=== PATIENT | male | born 1980 | race Hispanic/Latino ===

== ENCOUNTER 2016-05-29 07:29 | Emergency (ER) | payer OTHER ==
[~2016-05-29] VITALS: Ht 172.7 cm; Wt 111.4 kg
[~2016-05-29 07:29] MED LIST: OXYC-465 PO
[2016-05-29 07:38] VITALS: BP 166/107; PULSE 103; RESP 18; O2SAT 96
[2016-05-29 08:15] VITALS: PULSE 101; RESP 14; O2SAT 97
[2016-05-29] MEDS ORDERED: 0.9% Sodium Chloride 1,000 ML IV ONE (08:30)
[2016-05-29] MEDS ORDERED: Pantoprazole 4 mg/mL 10 mL Inj IVPUSH ONE (08:30)
--- NOTE | 2016-05-29 08:40 | ED.REPORT ---
HPI-Abd Pain M Under 40 Date of Service May 29, 2016 ED Provider: Fredy Downey MD Patient is a 35 year old male with who presents to the ED complaining of right abdominal pain. Pt describes the pain as waxing and waning and "feels like a hernia." Pt had an internal hernia three years ago following a laparoscopy cholecystectomy with complications of hepatic laceration several years ago. Pt denies fever and vomiting. Pt has had normal bowel movements. Nursing Notes Stated Complaint: STOMACH PAIN Chief Complaint: Male Abdominal Pain Nursing Notes Reviewed: Yes Allergies: Coded Allergies: No Known Allergies (Verified Allergy, Unknown, 03/21/15) Scheduled Hyoscyamine SL (Hyoscyamine SL) 0.125 Mg Subl 0.125 MG SL QID Scheduled PRN Hydrocodone-Acetaminophen 5-325 mg (Hydrocodone-Acetaminophen 5-325 mg) 1 Each Tablet 1-2 TABLET PO Q4H PRN PRN For Pain Ondansetron ODT (Zofran ODT) 4 Mg Tablet 4 MG PO Q4H PRN PRN For Nausea oxyCODONE-Acetaminophen 7.5-325 mg (oxyCODONE-Acetaminophen 7.5-325 mg) 1 Each Tablet 1-2 TAB PO Q8H PRN PRN For Pain General Time Seen by MD: 08:03 Chief Complaint Abdominal pain (RUQ) Hx Obtained From: Patient Arrived By: Walk-in Onset Occurred: 1 day ago Symptom Duration: Since onset Progression since Onset: Waxes and wanes Location: : RUQ Past Medical History Past Medical History Notes: PCP Eliecer Multiple ED visit for abd pain, several Abdominal CT's at [facility] since 2011 Past Medical History From EMR - Status post acute renal failure secondary to acute tubular necrosis with no long-term effects. Chronic abdominal pain on opiates per old records Reports: GERD Past Surgical History laparascopy cholecystectomy with complications of hepatic laceration requiring transfer to [facility], laparotomy, and ICU stay Incarcerated incisional hernia, Calderon's hernia, and lysis of adhesions of extensive RLQ intra-abdominal adhesions 03/31/2014 Family History noncontributory Smoking History Former Smoker Social History Alcohol Use: Denies alcohol use Drug Use: Denies drug use Other Social History: Local resident Ambulatory Status Independent Review of Systems Constitutional: Denies: Fever GI: Reports: Abdominal pain (RUQ), Denies: Bloody/tarry stool, Constipation, Diarrhea, Hematochezia, Melena, Mucousy stool, Vomiting Complete sys rev & neg: except as marked. Physical Exam Initial Vital Signs Vital Signs (First) Date Time Temp Pulse Resp B/P Pulse Ox O2 Delivery O2 Flow Rate FiO2 05/29/16 07:38 36.6 103 18 166/107 96 Room Air Initial VS: Reviewed Head / Eyes: Atraumatic, Normocephalic, PERRL ENT: Mucous membranes moist, Conjunctiva normal, No scleral icterus Neck: Supple, Non-tender, Full range of motion Lymphatic: No lymphadenopathy Extremities: Vascular intact, Neuro intact, No swelling, No tenderness Skin: Warm, Dry, No cyanosis Neurologic: Alert, Oriented, Nonfocal Psychiatric: Mood/affect normal, Behavior normal, Normal thought content General/Constitutional: Awake, Alert, Well appearing Respiratory / Chest: Atraumatic, Breath sounds NL, Breath sounds = bilat, No respiratory distress Cardiovascular: Heart rate NL, Regular rhythm, Heart sounds NL, No gallop, No murmurs, No rubs Abdomen: Soft, No guarding, No rebound, BS normoactive, No distention, No hernia, No palpable mass, No pulsatile mass Tenderness/Guarding/Rebound: Positive: Tender RUQ... Back: Atraumatic, Inspection NL, Full range of motion Interpretation & Diagnostics Lab Results Interpretation Result Diagram: 05/29/16 0916 05/29/16 0916 Test 05/29/16 09:05 05/29/16 09:16 Hold William Top Tube Received (Received) White Blood Count 5.7th/mm3 (3.8-10.1) Red Blood Count 5.30mil/mm3 (4.40-5.80) Hemoglobin 15.5g/dL (13.8-17.2) Hematocrit 45.2% (41.0-50.0) Mean Corpuscular Volume 85.3fL (81-100) Mean Corpuscular Hemoglobin 29.2pg (27.0-35.0) Mean Corpuscular Hemoglobin Concent 34.3% (32.0-37.0) Red Cell Distribution Width 12.5% (12.3-15.4) Platelet Count 149bil/L (150-400) Neutrophils (%) (Auto) 74.8% (40-74) Lymphocytes (%) (Auto) 17.2% (14-46) Monocytes (%) (Auto) 6.5% (4-12) Eosinophils (%) (Auto) 1.1% (0-5) Basophils (%) (Auto) 0.2% (0-3) Sodium Level 138mEq/L (134-144) Potassium Level 4.4mEq/L (3.5-5.2) Chloride Level 101mEq/L (97-108) Carbon Dioxide Level 24mmol/L (18-29) Blood Urea Nitrogen 12mg/dL (6-20) Creatinine 0.70mg/dL (0.76-1.27) Estimat Glomerular Filtration Rate 136mL/min (>59) Glucose Level 119mg/dL (60-99) Calcium Level 9.3mg/dL (8.5-10.1) Magnesium Level 1.9mg/dL (1.6-2.6) Total Bilirubin 0.5mg/dL (0.0-1.2) Aspartate Amino Transf (AST/SGOT) 21U/L (0-50) Alanine Aminotransferase (ALT/SGPT) 25U/L (0-44) Alkaline Phosphatase 75U/L (25-150) Total Protein 7.3g/dL (6.4-8.4) Albumin 4.3g/dL (3.4-5.0) Lipase 11U/L (13-60) X-Ray Abdominal Interpretation IMPRESSION: No acute disease process. Dictated by: Dian Mondragon MD, PhD on 05/29/2016 at 9:16 Approved by: Dian Mondragon MD, PhD on 05/29/2016 at 9:16 Study: 2 view Interpretation / Wet Read by: Interpret - Radiologist Re-Eval/Medical Decision Re-Evaluation/Progress : Time of Eval: 10:25 Re-Evaluation/Progress Note: Pt rechecked. Informed pt of diagnosis and plan for treatment. Pt understands and agrees with plan. F/U and RTER warnings given. All questions addressed. Counseled Regarding: Diagnosis, Lab results, Need for follow-up, When/why to return to ED Patient Discharge & Departure Primary Impression: Abdominal pain Abdominal location: generalized Qualified Code: R10.84 - Generalized abdominal pain Disposition: Home Discharge Condition All VS Reviewed: Yes Condition: Stable Patient Instructions: Acute Abdominal Pain (ED) Additional Instructions: Thank you for seeking care at emergency room. No blockage is identified no dangerous infection is identified. I think watchful waiting is the next appropriate step. I recommend copious oral hydration. I recommend that you remain active by walking about as this will improve your colon activity. I recommend ondansetron as needed for nausea. You can also use hyoscyamine for abdominal cramps or pain additionally, you can use hydrocodone/APAP one or 2 at a time as needed for more severe pain. Follow-up in 2 or 3 days if significantly not improved sooner if worse. Thank you for letting us partake in your care today. Referrals: NOPCP (PCP) Scribe Attestation Portion of this note were transcribed by Lavonne Boss and Clifton Zepeda. I, Dr. Downey, personally performed the history, physcial exam, and medical decision- making: I reviewed and confirmed the accuracy for the information in the transcribed note. Signed by: Clifton Zepeda and willy Baires, 05/25/16 1045. Fredy Downey MD May 29, 2016 08:40 CLIFTON ZEPEDA May 29, 2016 09:14 Lavonne Boss May 29, 2016 09:39
[2016-05-29] MEDS: Ondansetron 2 mg/mL 2 mL Inj IVPUSH PRN ×2 (09:10→10:46)
[2016-05-29] MEDS: HYDROmorphone 1 mg/mL Inj IVPUSH PRN ×2 (09:14→09:39)
--- NOTE | 2016-05-29 09:18 | DRSVH ---
PROCEDURE: X-RAY ACUTE ABDOMINAL SERIES ([id number]) INDICATIONS: Abd Pain TECHNIQUE: One view chest and two views of the abdomen were acquired. COMPARISON: [facility], CR, XR ABD ACUTE SERIES 3VW, 10/03/2015, 11:36. FINDINGS: Surgical changes and devices: Cholecystectomy clips. Chest: Lungs are clear. Heart size is normal. No pleural effusions. No pneumoperitoneum. Abdomen: Bowel gas pattern is normal. No suspicious calcifications. Visualized solid organ contour s appear normal. Bones: No suspicious bony lesions. IMPRESSION: No acute disease process. Dictated by: Dian Mondragon MD, PhD on 05/29/2016 at 9:16 Approved by: Dian Mondragon MD, PhD on 05/29/2016 at 9:16
[2016-05-29 09:23] LABS: BASOPHILS % (AUTO) 0.2 % (0-3); EOSINOPHILS % (AUTO) 1.1 % (0-5); MONOCYTES % (AUTO) 6.5 % (4-12); Mean Corpuscular Hemoglobin 29.2 pg (27.0-35.0); Mean Corpuscular Volume 85.3 fL (81-100); NEUTROPHILS % (AUTO) 74.8 % (40-74); Platelet Count 149 bil/L (150-400)
[2016-05-29 09:42] LABS: Magnesium 1.9 mg/dL (1.6-2.6)
[2016-05-29 10:13] VITALS: BP 144/85; PULSE 89; RESP 10; O2SAT 95
[2016-05-29] MEDS ORDERED: HYOS0.1218 SL (10:36)
[2016-05-29] MEDS ORDERED: HYDR-4003 PO (10:36)
[2016-05-29] MEDS ORDERED: ONDA4TAB9 PO (10:36)
[2016-05-29] MEDS ORDERED: HYDROmorphone 1 mg/mL Inj IVPUSH ONE (10:40)
[2016-05-29 10:48] VITALS: BP 148/74; PULSE 83; RESP 11; O2SAT 96
[2016-05-29 11:03] VITALS: BP 148/74; PULSE 83; RESP 11; O2SAT 96
== END 2016-05-29 11:04 | disposition home or self-care (01) ==
LOC: SED 07:29
DX: R10.11 Right upper quadrant pain (principal); K21.9 Gastro-esophageal reflux disease without esophagitis; Z90.49 Acquired absence of other specified parts of digestive tract; Z87.891 Personal history of nicotine dependence
CPT/HCPCS: 36415; 74022; 80053; 83690; 83735; 85025; 96361; 96374; 96375; 96376; 99285; J1170; J2405; J7030

== ENCOUNTER 2016-06-03 08:23 | Emergency (ER) | payer OTHER ==
[~2016-06-03] VITALS: Ht 170.2 cm; Wt 109.1 kg
[~2016-06-03 08:23] MED LIST changes: +HYDR-4003 PO; +HYOS0.1218 SL; +ONDA4TAB9 PO
[2016-06-03 08:30] VITALS: BP 152/102; PULSE 99; RESP 15; O2SAT 96
--- NOTE | 2016-06-03 09:03 | ED.REPORT ---
HPI-Abd Pain M Under 40 Date of Service Jun 03, 2016 ED Provider: Fredy Downey MD Pt is a 35 year old male with a history of a complicated cholecystitis who presents to the ED with complaints of RUQ abdominal pain that started one week ago. Pt describes his pain as a burning that starts in his RUQ and radiates downwards. He denies any nausea, but admits to self-induced vomiting to alleviate his pain. He reports that he was seen in the ED for the same complaints one week ago, and was discharged after her was stabilized. He reports that once the medications wore off, the pain returned. Pt denies any diarrhea, constipation, chills, fevers or any other symptoms. Pt reports a complicated surgical history in his abdomen, including a nicked artery during a cholecystectomy, requiring a medical induced coma. Nursing Notes Stated Complaint: ABDOMINAL PAIN Chief Complaint: Male Abdominal Pain Nursing Notes Reviewed: Yes Allergies: Coded Allergies: No Known Allergies (Verified Allergy, Unknown, 03/21/15) Scheduled Hyoscyamine SL (Hyoscyamine SL) 0.125 Mg Subl 0.125 MG SL QID Scheduled PRN Hydrocodone-Acetaminophen 5-325 mg (Hydrocodone-Acetaminophen 5-325 mg) 1 Each Tablet 1-2 TABLET PO Q4H PRN PRN For Pain Ondansetron ODT (Zofran ODT) 4 Mg Tablet 4 MG PO Q4H PRN PRN For Nausea oxyCODONE-Acetaminophen 7.5-325 mg (oxyCODONE-Acetaminophen 7.5-325 mg) 1 Each Tablet 1-2 TAB PO Q8H PRN PRN For Pain General Time Seen by MD: 08:43 Chief Complaint Abdominal pain Hx Obtained From: Patient Arrived By: Walk-in Sudden in Onset?: Yes Onset Occurred: 1 week ago Symptom Duration: Intermittent Location: : RUQ Quality: Painful Severity: Current: Moderate Severity: Maximum: Severe Similar Sx Previous: Yes Past Medical History Past Medical History Notes: PCP Eliecer Multiple ED visit for abd pain, several Abdominal CT's at [facility] since 2011 Past Medical History From EMR - Status post acute renal failure secondary to acute tubular necrosis with no long-term effects. Chronic abdominal pain on opiates per old records Reports: GERD Past Surgical History laparascopy cholecystectomy with complications of hepatic laceration requiring transfer to [facility], laparotomy, and ICU stay Incarcerated incisional hernia, Calderon's hernia, and lysis of adhesions of extensive RLQ intra-abdominal adhesions 03/31/2014 Family History noncontributory Smoking History Former Smoker Social History Alcohol Use: Denies alcohol use Drug Use: Denies drug use Other Social History: Local resident Ambulatory Status Independent Review of Systems Constitutional: Denies: Chills, Fever, Malaise, Weakness - generalized Respiratory: Denies: Non-productive cough, Shortness of breath, Wheezing Cardiovascular: Denies: Chest pain, Syncope GI: Reports: Abdominal pain, Vomiting, Denies: Constipation, Diarrhea, Nausea Male: Denies Dysuria, Denies Flank pain, Denies Urinary frequency, Denies Urinary urgency Complete sys rev & neg: except as marked. Physical Exam Initial Vital Signs Vital Signs (First) Date Time Temp Pulse Resp B/P Pulse Ox O2 Delivery O2 Flow Rate FiO2 06/03/16 08:30 36.7 99 15 152/102 96 Room Air Initial VS: Reviewed Head / Eyes: Atraumatic, Normocephalic, PERRL ENT: Mucous membranes moist, Conjunctiva normal, No scleral icterus Neck: Supple, Non-tender, Full range of motion Skin: Warm, Dry, No cyanosis Neurologic: Alert, Oriented, Nonfocal Psychiatric: Mood/affect normal, Behavior normal, Normal thought content General/Constitutional: Awake, Alert, Well appearing, Well developed, Well nourished, Cooperative Respiratory / Chest: Atraumatic, Breath sounds NL, Breath sounds = bilat, No respiratory distress Cardiovascular: Heart rate NL, Regular rhythm, Heart sounds NL, No gallop, No murmurs, No rubs Abdomen: Soft, No guarding, No rebound Exquisitely tender RUQ Back: Atraumatic, Inspection NL, No CVA tenderness Interpretation & Diagnostics Lab Results Interpretation Result Diagram: 06/03/16 0940 06/03/16 0940 Test 06/03/16 09:40 White Blood Count 5.4th/mm3 (3.8-10.1) Red Blood Count 5.14mil/mm3 (4.40-5.80) Hemoglobin 15.1g/dL (13.8-17.2) Hematocrit 44.2% (41.0-50.0) Mean Corpuscular Volume 86.0fL (81-100) Mean Corpuscular Hemoglobin 29.4pg (27.0-35.0) Mean Corpuscular Hemoglobin Concent 34.2% (32.0-37.0) Red Cell Distribution Width 12.7% (12.3-15.4) Platelet Count 139bil/L (150-400) Neutrophils (%) (Auto) 71.2% (40-74) Lymphocytes (%) (Auto) 18.6% (14-46) Monocytes (%) (Auto) 7.6% (4-12) Eosinophils (%) (Auto) 2.2% (0-5) Basophils (%) (Auto) 0.2% (0-3) Sodium Level 137mEq/L (134-144) Potassium Level 4.3mEq/L (3.5-5.2) Chloride Level 100mEq/L (97-108) Carbon Dioxide Level 26mmol/L (18-29) Blood Urea Nitrogen 10mg/dL (6-20) Creatinine 0.69mg/dL (0.76-1.27) Estimat Glomerular Filtration Rate 139mL/min (>59) Glucose Level 123mg/dL (60-99) Calcium Level 9.2mg/dL (8.5-10.1) Magnesium Level 1.9mg/dL (1.6-2.6) Total Bilirubin 0.8mg/dL (0.0-1.2) Aspartate Amino Transf (AST/SGOT) 18U/L (0-50) Alanine Aminotransferase (ALT/SGPT) 24U/L (0-44) Alkaline Phosphatase 75U/L (25-150) Total Protein 7.0g/dL (6.4-8.4) Albumin 4.1g/dL (3.4-5.0) Lipase 11U/L (13-60) Re-Eval/Medical Decision Source of Hx: Old records Re-Evaluation/Progress : Time of Eval: 12:02 Patient Status: Condition improved Re-Evaluation/Progress Note: At this point the patient has declined further evaluation. Though he has been drinking oral contrast and is prepared to go to CT with the technology strategist in the room ready to take him, he says he does not want have this test now he just wants to go home he says "he can be in pain at home just as easily" he says he just was to follow up as an outpatient. He understands that he will not get a pain medication prescription to go home. Counseled Regarding: Diagnosis, Lab results, Need for follow-up, When/why to return to ED Patient Discharge & Departure Primary Impression: Abdominal pain Abdominal location: right upper quadrant Qualified Code: R10.11 - Right upper quadrant pain Disposition: Home Discharge Condition All VS Reviewed: Yes Condition: Stable Patient Instructions: Acute Abdominal Pain (ED) Additional Instructions: No definitive cause for your abdominal pain is identified. I suspect it is a complication of previous surgeries that you have had. You have declined further evaluation at this time though we have offered CT scanning. You understand that no narcotic prescriptions are provided at this time. I recommend that you use either ibuprofen or Tylenol as needed for pain and follow up with your outpatient doctor as soon as possible. If your symptoms are out of control you have worsening symptoms or new symptoms, you are welcome to return to the emergency department for further evaluation. Referrals: NOPCP (PCP) Scribe Attestation Portions of this note were transcribed by Juanis Daniels. I, Dr. Downey personally performed the history, physical exam and medical decision-making; I reviewed and confirmed the accuracy of the information in the transcribed note. Signed by: Juanis Velarde, 06/03/2016 [Time] Fredy Downey MD Jun 03, 2016 09:03 WAGNER DANIELS Jun 03, 2016 09:20
[2016-06-03] MEDS ORDERED: 0.9% Sodium Chloride 1,000 ML IV ONE (09:16)
[2016-06-03] MEDS ORDERED: Ondansetron 2 mg/mL 2 mL Inj IVPUSH PRN (09:20)
[2016-06-03] MEDS ORDERED: Pantoprazole 4 mg/mL 10 mL Inj IVPUSH ONE (09:20)
[2016-06-03] MEDS ORDERED: HYDROmorphone 1 mg/mL Inj IVPUSH ONE (09:20)
[2016-06-03] MEDS ORDERED: Iohexol 300 mg/mL 30 mL Inj PO ONE (09:55)
[2016-06-03 09:59] LABS: BASOPHILS % (AUTO) 0.2 % (0-3); EOSINOPHILS % (AUTO) 2.2 % (0-5); MONOCYTES % (AUTO) 7.6 % (4-12); Mean Corpuscular Hemoglobin 29.4 pg (27.0-35.0); NEUTROPHILS % (AUTO) 71.2 % (40-74); Platelet Count 139 bil/L (150-400)
[2016-06-03] MEDS ORDERED: HYDROmorphone 1 mg/mL Inj IVPUSH PRN (10:20)
[2016-06-03 10:23] LABS: Magnesium 1.9 mg/dL (1.6-2.6)
== END 2016-06-03 12:17 | disposition home or self-care (01) ==
LOC: SED 08:23
DX: R10.11 Right upper quadrant pain (principal); G89.29 Other chronic pain; K21.9 Gastro-esophageal reflux disease without esophagitis; Z79.891 Long term (current) use of opiate analgesic; Z87.19 Personal history of other diseases of the digestive system; Z98.890 Other specified postprocedural states; Z90.49 Acquired absence of other specified parts of digestive tract
CPT/HCPCS: 36415; 80053; 83690; 83735; 85025; 96361; 96374; 96375; 99285; J1170; J2405; J7030

== ENCOUNTER 2016-06-14 05:24 | Emergency (ER) | payer OTHER ==
[~2016-06-14] VITALS: Ht 172.7 cm; Wt 118.2 kg
[2016-06-14 05:26] VITALS: BP 152/103; PULSE 84; RESP 16; O2SAT 97
[2016-06-14 06:03] LABS: BASOPHILS % (AUTO) 0.1 % (0-3); EOSINOPHILS % (AUTO) 1.3 % (0-5); MONOCYTES % (AUTO) 9.6 % (4-12); Mean Corpuscular Hemoglobin 28.7 pg (27.0-35.0); Mean Corpuscular Volume 85.6 fL (81-100); NEUTROPHILS % (AUTO) 66.8 % (40-74); Platelet Count 150 bil/L (150-400)
--- NOTE | 2016-06-14 06:09 | ED.REPORT ---
HPI-Abd Pain M Under 40 Date of Service Jun 14, 2016 ED Provider: Galindo Carrington DO The patient is a 35 year old male with history of chronic abdominal pain who presents to the emergency department complaining of abdominal pain that began last week. He was in [place] when his symptoms began and was seen at a local hospital. He was diagnosed with colitis and was discharged with prescriptions. He was unable to get his prescriptions filled. His pain has started to worsen again over the last few days. He has also experienced nausea, vomiting, and diarrhea. The diarrhea looks "yellow." He denies fever, chills, cough, runny nose, dysuria or hematuria. Nursing Notes Stated Complaint: STOMACH PAIN Chief Complaint: Male Abdominal Pain Nursing Notes Reviewed: Yes Allergies: Coded Allergies: No Known Allergies (Verified Allergy, Unknown, 03/21/15) Scheduled Hyoscyamine SL (Hyoscyamine SL) 0.125 Mg Subl 0.125 MG SL QID Scheduled PRN Hydrocodone-Acetaminophen 5-325 mg (Hydrocodone-Acetaminophen 5-325 mg) 1 Each Tablet 1-2 TABLET PO Q4H PRN PRN For Pain Ondansetron ODT (Zofran ODT) 4 Mg Tablet 4 MG PO Q4H PRN PRN For Nausea Ondansetron ODT (Zofran ODT) 4 Mg Tablet 4 MG PO Q4H PRN PRN For Nausea Tramadol (Tramadol) 50 Mg Tablet 50 MG PO Q4H PRN PRN For Pain oxyCODONE-Acetaminophen 7.5-325 mg (oxyCODONE-Acetaminophen 7.5-325 mg) 1 Each Tablet 1-2 TAB PO Q8H PRN PRN For Pain General Time Seen by MD: 06:05 Chief Complaint Abdominal pain Hx Obtained From: Patient Arrived By: Walk-in Sudden in Onset?: Yes Onset Occurred: More than a week ago... Symptom Duration: Since onset Progression since Onset: Constant, Gradually worsening Location: : Diffuse Quality: Painful Radiation: : Does not radiate Severity: Current: Moderate Severity: Maximum: Severe Associated with: Reports: Diarrhea, Nausea, Vomiting, Denies: Chills, Fever Pertinent Negative: Pt denies other symptoms Recent Healthcare: No recent hospitalization, Recent doctor visit Similar Sx Previous: Yes Past Medical History Past Medical History Notes: Multiple ED visit for abd pain, several Abdominal CT's at [facility] since 2011 Past Medical History From EMR - Status post acute renal failure secondary to acute tubular necrosis with no long-term effects. Chronic abdominal pain on opiates per old records Reports: GERD Past Surgical History laparascopy cholecystectomy with complications of hepatic laceration requiring transfer to [facility], laparotomy, and ICU stay Incarcerated incisional hernia, Calderon's hernia, and lysis of adhesions of extensive RLQ intra-abdominal adhesions 03/31/2014 Family History noncontributory Smoking History Former Smoker Social History Alcohol Use: Denies alcohol use Drug Use: Denies drug use Other Social History: Local resident Ambulatory Status Independent Review of Systems Constitutional: Denies: Chills, Fever Respiratory: Denies: Non-productive cough GI: Reports: Abdominal pain, Diarrhea, Nausea, Vomiting, Denies: Bloody/tarry stool, Constipation, Hematemesis, Hematochezia Male: Denies Dysuria, Denies Hematuria Complete sys rev & neg: except as marked. Ears / Nose / Throat: Denies: Sore throat Allergy / Immune: Denies: Rhinorrhea Physical Exam Initial Vital Signs Vital Signs (First) Date Time Temp Pulse Resp B/P Pulse Ox O2 Delivery O2 Flow Rate FiO2 06/14/16 05:26 36.2 84 16 152/103 97 Room Air Initial VS: Reviewed Head / Eyes: Atraumatic, Normocephalic, PERRL ENT: Mucous membranes moist, Conjunctiva normal, No scleral icterus Neck: Supple, Non-tender, Full range of motion Lymphatic: No lymphadenopathy Extremities: Vascular intact, Neuro intact, No swelling, No tenderness Skin: Warm, Dry, No cyanosis Neurologic: Alert, Oriented, Nonfocal Psychiatric: Mood/affect normal, Behavior normal, Normal thought content General/Constitutional: Awake, Alert, Well appearing Distress / Hydration: Positive: Distress mild Appearance / Presentation: Positive: Obese Respiratory / Chest: Atraumatic, Breath sounds NL, Breath sounds = bilat, No respiratory distress, No rales, No rhonchi, No wheezing, No stridor Cardiovascular: Heart rate NL, Regular rhythm, Heart sounds NL, No murmurs, No rubs, Peripheral circulation NL Abdomen: Soft, No guarding, No rebound, BS normoactive, No distention, No hernia, No palpable mass, No pulsatile mass Right-sided abdominal tenderness. Multiple abdominal scars. Back: Inspection NL Interpretation & Diagnostics Lab Results Interpretation Result Diagram: 06/14/16 0555 06/14/16 0555 Test 06/14/16 05:55 White Blood Count 8.4th/mm3 (3.8-10.1) Red Blood Count 5.29mil/mm3 (4.40-5.80) Hemoglobin 15.2g/dL (13.8-17.2) Hematocrit 45.3% (41.0-50.0) Mean Corpuscular Volume 85.6fL (81-100) Mean Corpuscular Hemoglobin 28.7pg (27.0-35.0) Mean Corpuscular Hemoglobin Concent 33.6% (32.0-37.0) Red Cell Distribution Width 13.1% (12.3-15.4) Platelet Count 150bil/L (150-400) Neutrophils (%) (Auto) 66.8% (40-74) Lymphocytes (%) (Auto) 21.8% (14-46) Monocytes (%) (Auto) 9.6% (4-12) Eosinophils (%) (Auto) 1.3% (0-5) Basophils (%) (Auto) 0.1% (0-3) Sodium Level 142mEq/L (134-144) Potassium Level 4.1mEq/L (3.5-5.2) Chloride Level 106mEq/L (97-108) Carbon Dioxide Level 21mmol/L (18-29) Blood Urea Nitrogen 14mg/dL (6-20) Creatinine 0.71mg/dL (0.76-1.27) Estimat Glomerular Filtration Rate 134mL/min (>59) Glucose Level 112mg/dL (60-99) Calcium Level 9.3mg/dL (8.5-10.1) Magnesium Level 2.1mg/dL (1.6-2.6) Total Bilirubin 0.7mg/dL (0.0-1.2) Aspartate Amino Transf (AST/SGOT) 24U/L (0-50) Alanine Aminotransferase (ALT/SGPT) 21U/L (0-44) Alkaline Phosphatase 75U/L (25-150) Total Protein 7.1g/dL (6.4-8.4) Albumin 4.5g/dL (3.4-5.0) Lipase 28U/L (13-60) CT Abd / Pelvis Interpretation IMPRESSION: 1. No acute process. No explanation for abdominal pain and emesis. No bowel obstruction. 2. Normal appendix. 3. Increased right basilar nodular densities as described above, largest of which measures 32 mm. These could represent regions of increased scarring. Further assessment with IV contrast enhanced chest CT is recommended to assess for the less likely possibility of neoplasm. 4. Diastatic rectus muscles with overlying fat containing umbilical hernia. Dictated by: Estella Adams M.D. on 06/14/2016 at 8:12 Interpretation / Wet Read by: Interpret - Radiologist Re-Eval/Medical Decision Med Decision/Clinical Course No acute pathology identified. Patient will be discharged with close follow-up recommended. Tramadol 6 tablets, and Zofran given. Source of Hx: Old records Re-Evaluation/Progress : Time of Eval: 08:24 Re-Evaluation/Progress Note: Rechecked the patient. Discussed plan for discharge. All questions were addressed. Counseled Regarding: Diagnosis, Lab results, Need for follow-up, When/why to return to ED Patient Discharge & Departure Primary Impression: Abdominal pain Abdominal location: unspecified location Qualified Code: R10.9 - Unspecified abdominal pain Disposition: Home Discharge Condition All VS Reviewed: Yes Condition: Stable Patient Instructions: Acute Abdominal Pain (ED) Additional Instructions: Thank you for entrusting us with your care today. Your labs and abdominal CT today are reassuring. There are no findings of anything acutely dangerous. Use the medications as prescribed. Followup with a regular doctor in the next few days for further management of your pain. We have given you a referral to the residency clinic and [facility]. Return to the emergency department for any new or concerning symptoms. Referrals: [facility] Attestation Portions of this note were transcribed by Lavonne Boss. I, Dr. Carrington personally performed the history, physical exam and medical decision-making; I reviewed and confirmed the accuracy of the information in the transcribed note. Signed by: Prachi Baires, 06/14/2016 and 0810. copies to: [facility] Galindo Carrington DO Jun 14, 2016 06:09 Lavonne Boss Jun 14, 2016 06:13
[2016-06-14] MEDS ORDERED: Ondansetron 2 mg/mL 2 mL Inj IVPUSH PRN (06:20)
[2016-06-14] MEDS ORDERED: 0.9% Sodium Chloride 1,000 ML IV ONE (06:20)
[2016-06-14] MEDS ORDERED: HYDROmorphone 1 mg/mL Inj IVPUSH ONE (06:20)
[2016-06-14 06:36] LABS: Magnesium 2.1 mg/dL (1.6-2.6)
[2016-06-14] MEDS ORDERED: HYDROcodone-APAP 5-325 mg Tablet PO ONE (07:35)
--- NOTE | 2016-06-14 08:18 | DRSVH ---
PROCEDURE: CT ABDOMEN AND PELVIS WITH CONTRAST ([id number]) INDICATIONS: abd pain, vomiting TECHNIQUE: After the administration of intravenous contrast, 5 mm thick sections acquired from the diaphragm to the symphysis. 5 mm coronal and sagittal reformats were acquired. For radiation dose reduction, the following was used: automated exposure control, adjustment of mA and/or kV according to patient lana e. COMPARISON: [facility], CT, CT ABD PELVIS W CON, 09/26/2015, 14:59. [facility], CT, CT ABD PELVIS W CON, 06/28/2015, 4:02. [facility], CT, CT ABD PELVIS W CON, 03/21, 21:05. FINDINGS: Image quality: Excellent. ABDOMEN: Lung bases: Increased, 14 mm diameter nodule within the right posterior lung base. Increased, 11 mm d iameter nodule within the right lateral lung base. Increased, 32 mm diameter subpleural density withi n the right anterior lung base. Heart size is normal. Solid organs: Liver and spleen are normal in size and enhancement. Gallbladder is surgically absent . Biliary system is non dilated. Pancreas enhances normally. No adrenal nodules. Kidneys demonstr ate normal size and enhancement, without hydronephrosis. Peritoneum and bowel: Bowel loops demonstrate normal wall thickness and caliber. No free fluid or a ir. Normal appendix. Nodes and vessels: No retroperitoneal or mesenteric adenopathy by size criteria. Aorta and inferior vena cava are normal in size. Miscellaneous: The rectus muscles are diastatic, as before. There is a small overlying fat containing umbilical hernia measuring 27 mm. PELVIS: Genitourinary: Bladder wall thickness is normal. Miscellaneous: No inguinal hernias or adenopathy. Bones: No suspicious bony lesions. No vertebral body compression fractures. IMPRESSION: 1. No acute process. No explanation for abdominal pain and emesis. No bowel obstruction. 2. Normal appendix. 3. Increased right basilar nodular densities as described above, largest of which measures 32 mm. The se could represent regions of increased scarring. Further assessment with IV contrast enhanced chest CT is recommended to assess for the less likely possibility of neoplasm. 4. Diastatic rectus muscles with overlying fat containing umbilical hernia. Dictated by: Estella Adams M.D. on 06/14/2016 at 8:12 Approved by: Estella Adams M.D. on 06/14/2016 at 8:16
[2016-06-14] MEDS ORDERED: TRAM50TA2 PO (08:32)
[2016-06-14] MEDS ORDERED: ONDA4TAB9 PO (08:32)
[2016-06-14 09:03] VITALS: BP 159/112; PULSE 86; O2SAT 99
== END 2016-06-14 08:32 | disposition home or self-care (01) ==
LOC: SED 05:24
DX: R10.9 Unspecified abdominal pain (principal); G89.29 Other chronic pain; R11.2 Nausea with vomiting, unspecified; R19.7 Diarrhea, unspecified; K21.9 Gastro-esophageal reflux disease without esophagitis; Z90.49 Acquired absence of other specified parts of digestive tract; Z87.891 Personal history of nicotine dependence
CPT/HCPCS: 36415; 74177; 80053; 83690; 83735; 85025; 96374; 96375; 99285; J1170; J2405; J7030; Q9967

== ENCOUNTER 2016-07-06 06:41 | Emergency (ER) | payer OTHER ==
[~2016-07-06] VITALS: Ht 172.7 cm; Wt 109.1 kg
[~2016-07-06 06:41] MED LIST changes: +TRAM50TA2 PO
[2016-07-06 06:43] VITALS: BP 151/100; PULSE 85; RESP 16; O2SAT 96
--- NOTE | 2016-07-06 07:09 | ED.REPORT ---
HPI-Abd Pain M Under 40 Date of Service Jul 06, 2016 ED Provider: Fredy Downey MD 35 year old male with a history of chronic abdominal pain on opiates per old records, cholecystectomy with complication of hepatic laceration, laparotomy, and incarcerated incisional hernia, Calderon's hernia and extensive intra- abdominal adhesions presents to the ER complaining of six weeks of acute on chronic abdominal pain. Patient denies fever, and diarrhea. He states that he was [place] on 06[place]13[place]16 [place] At that time he was admitted to [facility] for colitis. Symptoms have been treated with Toradol shots administered by his PCP, Dr. Madrigal, with only temporary relief. He expresses frustration with his medical care, stating that "nobody knows what is wrong and they don't do enough". Nursing Notes Stated Complaint: ABDOMINAL PAIN Chief Complaint: Male Abdominal Pain Nursing Notes Reviewed: Yes Allergies: Coded Allergies: No Known Allergies (Verified Allergy, Unknown, 07/06/16) Scheduled Hyoscyamine SL (Hyoscyamine SL) 0.125 Mg Subl 0.125 MG SL QID Scheduled PRN Hydrocodone-Acetaminophen 5-325 mg (Hydrocodone-Acetaminophen 5-325 mg) 1 Each Tablet 1-2 TABLET PO Q4H PRN PRN For Pain Ondansetron ODT (Zofran ODT) 4 Mg Tablet 4 MG PO Q4H PRN PRN For Nausea Ondansetron ODT (Zofran ODT) 4 Mg Tablet 4 MG PO Q4H PRN PRN For Nausea Tramadol (Tramadol) 50 Mg Tablet 50 MG PO Q4H PRN PRN For Pain oxyCODONE-Acetaminophen 7.5-325 mg (oxyCODONE-Acetaminophen 7.5-325 mg) 1 Each Tablet 1-2 TAB PO Q8H PRN PRN For Pain General Time Seen by MD: 07:08 Chief Complaint Abdominal pain Hx Obtained From: Patient Arrived By: Walk-in Onset Occurred: More than a week ago... (6 weeks) Symptom Duration: Since onset Location: : Diffuse Quality: Painful Severity: Current: Moderate Severity: Maximum: Moderate Associated with: Reports: Nausea, Vomiting, Denies: Diarrhea, Fever Context Related History: Reports: Abdominal surgery, Adhesions, Cholecystitis Similar Sx Previous: Yes Past Medical History Past Medical History Notes: Multiple ED visit for abd pain, several Abdominal CT's at [facility] since 2011 Past Medical History From EMR - Status post acute renal failure secondary to acute tubular necrosis with no long-term effects. Chronic abdominal pain on opiates per old records Reports: GERD Past Surgical History laparascopy cholecystectomy with complications of hepatic laceration requiring transfer to [facility], laparotomy, and ICU stay Incarcerated incisional hernia, Calderon's hernia, and lysis of adhesions of extensive RLQ intra-abdominal adhesions 03/31/2014 Family History noncontributory Smoking History Former Smoker Social History Alcohol Use: Denies alcohol use Drug Use: Denies drug use Other Social History: Local resident Ambulatory Status Independent Review of Systems Constitutional: Denies: Chills, Fever Respiratory: Denies: Non-productive cough, Shortness of breath Cardiovascular: Denies: Chest pain GI: Reports: Abdominal pain, Nausea, Vomiting, Denies: Diarrhea, Hematemesis, Hematochezia Complete sys rev & neg: except as marked. Physical Exam Initial Vital Signs Vital Signs (First) Date Time Temp Pulse Resp B/P Pulse Ox O2 Delivery O2 Flow Rate FiO2 07/06/16 06:43 36.9 85 16 151/100 96 Room Air Initial VS: Reviewed Head / Eyes: Atraumatic, Normocephalic Neck: Supple, Non-tender, Full range of motion Extremities: Vascular intact, Neuro intact, No swelling, No tenderness Skin: Warm, Dry, No cyanosis Neurologic: Alert, Oriented, Nonfocal General/Constitutional: Awake, Alert, Well developed, Well nourished Respiratory / Chest: Breath sounds NL, Breath sounds = bilat, No respiratory distress, No rales, No rhonchi, No wheezing, No stridor Cardiovascular: Heart rate NL, Regular rhythm, Heart sounds NL, Peripheral circulation NL Abdomen: Soft, No guarding, No rebound, No distention Tenderness/Guarding/Rebound: Positive: Tender diffuse Back: Inspection NL, Non-tender, No CVA tenderness Re-Eval/Medical Decision Source of Hx: Old records Re-Evaluation/Progress : Time of Eval: 09:08 Re-Evaluation/Progress Note: Nurse reports that patient has eloped. Consultation : Referral / Consult Name: Elian Perez MD Consulted With: Primary care physician Call Returned at: 09:04 Note: Discussed patient case with Dr. Garett Perez, [facility]. states that she will relay this information to Dr. Madrigal. While I was on the phone, the patient left the department without being discharged. He was visibly irritated by the fact that I was only interested in administering Toradol for his pain management. Patient Discharge & Departure Primary Impression: Abdominal pain Abdominal location: generalized Qualified Code: R10.84 - Generalized abdominal pain Disposition: AGAINST MEDICAL ADVICE (the patient left without being discharged and without completing evaluation. He did not advise staff that he was leaving. ) Discharge Condition All VS Reviewed: Yes Condition: Stable Patient Instructions: Acute Abdominal Pain (ED) Referrals: NOPCP (PCP) Anthony Madrigal MD Attestation Portions of this note were transcribed by Kar Veliz. I, Dr. Downey, personally performed the history, physical exam and medical decision-making; I reviewed and confirmed the accuracy of the information in the transcribed note. Signed by: Prachi Flores, 07/06/2016 and 09:09 copies to: Anthony Madrigal MD, Kirk H MD Jul 06, 2016 07:09 KAR VELIZ Jul 06, 2016 07:18
[2016-07-06] MEDS ORDERED: Ketorolac 30 mg/mL 2 mL Inj IM ONE (09:00)
[2016-07-06] MEDS ORDERED: Ondansetron 8 mg ODT Tablet PO ONE (09:00)
== END 2016-07-06 09:07 | disposition left against medical advice (07) ==
LOC: SED 06:41
DX: R10.84 Generalized abdominal pain (principal); K21.9 Gastro-esophageal reflux disease without esophagitis; Z90.49 Acquired absence of other specified parts of digestive tract; Z87.891 Personal history of nicotine dependence

== ENCOUNTER 2016-09-13 08:24 | Emergency (ER) | payer OTHER ==
[~2016-09-13] VITALS: Ht 172.7 cm; Wt 113.6 kg
[2016-09-13 08:30] VITALS: BP 153/108; PULSE 95; RESP 12; O2SAT 98
[2016-09-13 08:57] LABS: BASOPHILS % (AUTO) 0.3 % (0-3); EOSINOPHILS % (AUTO) 1.9 % (0-5); Mean Corpuscular Hemoglobin 29.5 pg (27.0-35.0); Mean Corpuscular Volume 86.5 fL (81-100); NEUTROPHILS % (AUTO) 70.8 % (40-74); Platelet Count 137 bil/L (150-400)
[2016-09-13] MEDS ORDERED: ACET-2605 PO (09:02)
[2016-09-13] MEDS ORDERED: IBUP200C PO (09:02)
--- NOTE | 2016-09-13 09:05 | ED.REPORT ---
HPI-Abd Pain M Under 40 Date of Service Sep 13, 2016 ED Provider: Jamie Connelly MD History of Present Illness: OCC The patient is a 36 year old male who presents to the ED due to increasingly severe RLQ abdominal pain for the past week. 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 He confirms that it is a similar "ripping, sharp, painful," sensation that he has experienced previously. He has been taking large amounts of ibuprofen and Tylenol to help alleviate symptoms. The pain is intermittent, 7/10, and more severe at night and in the morning. Pain increases with exertion. He denies fever, nausea, vomiting, diarrhea, dysuria, cough, and change in weight. He was last seen 06/2016 for similar symptoms. Nursing Notes Stated Complaint: STOMACH PAIN/FEEL DEHYDRATED Chief Complaint: Male Abdominal Pain Nursing Notes Reviewed: Yes (Power Efficiency, Tippr reconciled) Allergies: Coded Allergies: No Known Allergies (Verified Allergy, Unknown, 07/06/16) Scheduled Acetaminophen/Diphenhydramine (Tylenol Pm Ex-Strength Caplet) 500 Mg-25 Mg Tablet 1 EACH PO HS Scheduled PRN Ibuprofen (Ibuprofen) 200 Mg Capsule 600 MG PO HS PRN PRN For Pain General Time Seen by MD: 08:45 Chief Complaint Abdominal pain Hx Obtained From: Patient Arrived By: Walk-in Location: : RLQ Quality: Painful, Sharp, Stabbing Severity: Current: Pain level 7 out of 10 Recent Healthcare: No recent doctor visit, No recent hospitalization Similar Sx Previous: No Past Medical History Past Medical History Notes: Multiple ED visit for abd pain, several Abdominal CT's at [facility] since 2011 Last ED visit 06/2016 for Abd Pain -> Eloped with chart indicating patient upset about receiving only Torradol Last ED visits also May 29, , and with CT imaging: Jun 14, 2016 NAD (but ?lung nodule). The patient has had 8 CT scans of the abdomen is 2011 Past Medical History From EMR - Status post acute renal failure secondary to acute tubular necrosis with no long-term effects. Chronic abdominal pain on opiates per old records Abnormal lung nodule, process the radiologist cannot exclude neoplasm with recommended chest with contrast based on abdominal CT scan findings 06/14/2016 Reports: GERD Past Surgical History laparascopy cholecystectomy with complications of hepatic laceration requiring transfer to [facility], laparotomy, and ICU stay Incarcerated incisional hernia, Calderon's hernia, and lysis of adhesions of extensive RLQ intra-abdominal adhesions 03/31/2014 Family History noncontributory Smoking History Former Smoker Social History Alcohol Use: Denies alcohol use Drug Use: Denies drug use Other Social History: Local resident Ambulatory Status Independent Review of Systems Review of Systems Note: does not have any respiratory symptoms Constitutional: Denies: Fever Respiratory: Denies: Dyspnea on exertion, Hemoptysis, Non-productive cough, Parox nocturnal dyspnea, Pleuritic pain, Wheezing GI: Reports: Abdominal pain, Denies: Diarrhea, Nausea, Vomiting Male: Denies Dysuria Complete sys rev & neg: except as marked. Endocrine: Denies: Weight gain, Weight loss Physical Exam Initial Vital Signs Vital Signs (First) Date Time Temp Pulse Resp B/P Pulse Ox O2 Delivery O2 Flow Rate FiO2 09/13/16 08:30 36.6 95 12 153/108 98 Room Air Initial VS: Reviewed, Vital signs normal (mild HTN) Head / Eyes: Atraumatic, Normocephalic, PERRL ENT: Mucous membranes moist, Conjunctiva normal Extremities: Vascular intact, Neuro intact, No swelling, No tenderness Skin: Warm, Dry General/Constitutional: Awake, Alert, Cooperative, Not toxic appearing Respiratory / Chest: Atraumatic, Breath sounds NL, Breath sounds = bilat, No respiratory distress Abdomen: No guarding, No rebound trace right side tenderness large midline incisional scar no palpable hernias evident Back: Atraumatic, Full range of motion Interpretation & Diagnostics Lab Results Interpretation Result Diagram: 09/13/16 0850 09/13/16 0850 Test 09/13/16 08:50 White Blood Count 5.9th/mm3 (3.8-10.1) Red Blood Count 5.12mil/mm3 (4.40-5.80) Hemoglobin 15.1g/dL (13.8-17.2) Hematocrit 44.3% (41.0-50.0) Mean Corpuscular Volume 86.5fL (81-100) Mean Corpuscular Hemoglobin 29.5pg (27.0-35.0) Mean Corpuscular Hemoglobin Concent 34.1% (32.0-37.0) Red Cell Distribution Width 12.4% (12.3-15.4) Platelet Count 137bil/L (150-400) Neutrophils (%) (Auto) 70.8% (40-74) Lymphocytes (%) (Auto) 19.8% (14-46) Monocytes (%) (Auto) 7.0% (4-12) Eosinophils (%) (Auto) 1.9% (0-5) Basophils (%) (Auto) 0.3% (0-3) Sodium Level 140mEq/L (134-144) Potassium Level 4.2mEq/L (3.5-5.2) Chloride Level 103mEq/L (97-108) Carbon Dioxide Level 24mmol/L (18-29) Blood Urea Nitrogen 11mg/dL (6-20) Creatinine 0.73mg/dL (0.76-1.27) Estimat Glomerular Filtration Rate 129mL/min (>59) Glucose Level 136mg/dL (60-99) Calcium Level 9.1mg/dL (8.5-10.1) Magnesium Level 1.9mg/dL (1.6-2.6) Total Bilirubin 0.3mg/dL (0.0-1.2) Aspartate Amino Transf (AST/SGOT) 19U/L (0-50) Alanine Aminotransferase (ALT/SGPT) 21U/L (0-44) Alkaline Phosphatase 84U/L (25-150) Total Protein 6.8g/dL (6.4-8.4) Albumin 4.2g/dL (3.4-5.0) Lipase 12U/L (13-60) Lab Results Interpretation: CBC normal CMP normal Lipase normal X-Ray Abdominal Interpretation IMPRESSION: 1. No bowel obstruction. There may be mild the left upper quadrant ileus. If the patient's bowel symptoms persist, please consider followup imaging. 2. Possible basilar atelectasis versus less likely pneumonia. Dictated by: Larry Leon M.D. on 09/13/2016 at 10:05 Approved by: Larry Leon M.D. on 09/13/2016 at 10:10 Interpretation / Wet Read by: Interpret - Radiologist Re-Eval/Medical Decision Med Decision/Clinical Course Since a 36-year-old males had a complex course in the past with postoperative complications following an attempted laparoscopic cholecystectomy, ultimately requiring transfer to [facility] and laparotomy. The patient has had subsequent problems with some intermittent chronic abdominal pain, without a clear-cut abnormality identified. He presents today saying he is having worsening pain he is very concerned, the characteristics are similar to exacerbations of pain is had in the past to some extent, but gotten so severe that he could not move today, he had to leave work , and came to the ED. He denies fevers, nausea, vomiting, diarrhea and reports normal stools. Ports taking Tylenol and ibuprofen, to borderline excessive amounts. On exam he has normal vitals. He is not feeling visible distress, he has some mild right-sided tenderness without guarding or rebound. There is a large laparotomy scar. Bowel sounds are intact. Source of Hx: Old records Counseled Regarding: Diagnosis, Lab results, Need for follow-up, When/why to return to ED Patient Discharge & Departure Primary Impression: Nonspecific abdominal pain Disposition: Home Discharge Condition All VS Reviewed: Yes Condition: Stable Additional Instructions: 1. A dangerous or definitive cause of the abdominal pain was not identified. No bowel obstruction was identified on x-ray, and her blood tests were normal. I am not finding indication recommend another CT scan, given no findings to indicate he would give a better answer, and you have already hade had 8 [address] scans in the past few years. 2. Activities and diet as tolerated. 3. Continue tylenol - 1000mg three - four times a day for pain as needed. DO NOT TAKE MORE THAN THIS. 4. Continue ibuprofen 400-800mg three times a day for pain. DO NOT TAKE MORE THAN THIS. 5. Follow up with your doctor at [facility]. 6. Return if new or worsening symptoms. Referrals: Anthony Madrigal MD (PCP) [facility] Attestation Portion of this note were transcribed by Romy Zepeda. I, Dr. Connelly, personally performed the history, physical exam, and medical decision-making: I reviewed and confirmed the accuracy for the information in the transcribed note. Signed by: willy Thayer, 09/13/16 1200 copies to: Anthony Madrigal MD, Matthew F MD Sep 13, 2016 09:05 Romy Zepeda Sep 13, 2016 09:28
[2016-09-13 09:39] LABS: Magnesium 1.9 mg/dL (1.6-2.6)
[2016-09-13] MEDS ORDERED: HYDROmorphone 1 mg/mL Inj IVPUSH ONE ×2 (10:05→11:10)
[2016-09-13] MEDS ORDERED: Haloperidol 5 mg/mL Inj IVPUSH ONE (10:05)
[2016-09-13] MEDS ORDERED: 0.9% Sodium Chloride 1,000 ML IV ONE (10:05)
[2016-09-13 10:56] VITALS: BP 147/92; PULSE 78; RESP 16; O2SAT 97
--- NOTE | 2016-09-13 11:12 | DRSVH ---
PROCEDURE: X-RAY ACUTE ABDOMINAL SERIES ([id number]) INDICATIONS: Abd pain TECHNIQUE: One view chest and two views of the abdomen were acquired. COMPARISON: [facility], CT, CT ABD PELVIS W CON, 06/14/2016, 7:55. FINDINGS: Surgical changes and devices: Clips are present within the right upper quadrant suggesting prior chol ecystectomy. Chest: Slight increased interstitial markings at the lung bases probably represents mild atelectasis. Heart size is normal. No pleural effusions. No pneumoperitoneum. Abdomen: A single borderline prominent air-filled small bowel loop within the left upper quadrant is of doubtful significance. No additional prominent air-filled small bowel loops are evident. No sign ificant air-fluid levels are seen. Air and stool is identified throughout the colon. No suspicious calcifications. Visualized solid organ contours appear normal. Bones: No suspicious bony lesions. IMPRESSION: 1. No bowel obstruction. There may be mild the left upper quadrant ileus. If the patient's bowel s ymptoms persist, please consider followup imaging. 2. Possible basilar atelectasis versus less likely pneumonia. Dictated by: Larry Leon M.D. on 09/13/2016 at 10:05 Approved by: Larry Leon M.D. on 09/13/2016 at 10:10
[2016-09-13 11:50] VITALS: BP 157/113; PULSE 84; RESP 16; O2SAT 97
[2016-09-13 11:52] VITALS: BP 157/113; PULSE 84; RESP 16; O2SAT 97
== END 2016-09-13 11:56 | disposition home or self-care (01) ==
LOC: SED 08:24
DX: R10.9 Unspecified abdominal pain (principal); G89.29 Other chronic pain; K21.9 Gastro-esophageal reflux disease without esophagitis; Z90.49 Acquired absence of other specified parts of digestive tract; Z87.891 Personal history of nicotine dependence
CPT/HCPCS: 36415; 74022; 80053; 83690; 83735; 85025; 96361; 96374; 96375; 96376; 99285; J1170; J1630; J7030

== ENCOUNTER 2016-09-16 09:24 | Emergency (ER) | payer OTHER ==
[~2016-09-16] VITALS: Ht 172.7 cm; Wt 97.7 kg
[~2016-09-16 09:24] MED LIST changes: +ACET-2605 PO; -HYDR-4003 PO; -HYOS0.1218 SL; +IBUP200C PO; -ONDA4TAB9 PO; -OXYC-465 PO; -TRAM50TA2 PO
[2016-09-16 09:32] VITALS: BP 158/95; PULSE 101; RESP 14; O2SAT 96
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
[2016-09-16] MEDS ORDERED: AMT50T PO (10:29)
[2016-09-16] MEDS ORDERED: DOCU-41 PO (10:29)
[2016-09-16] MEDS ORDERED: OXYC5TAB72 PO (10:29)
== END 2016-09-16 11:03 | disposition home or self-care (01) ==
LOC: SED 09:24
DX: R10.84 Generalized abdominal pain (principal); K21.9 Gastro-esophageal reflux disease without esophagitis; Z87.891 Personal history of nicotine dependence